=== PATIENT | female | born 1980 | race Hispanic/Latino ===

== ENCOUNTER 2017-06-12 21:10 | Emergency (ER) | payer OTHER ==
[~2017-06-12] VITALS: Ht 157.5 cm; Wt 106.0 kg
[~2017-06-12 21:10] MED LIST: PHENERGAN25 MG/TAB PO; PRENATAL1 TA1 PO
[2017-06-12 22:17] LABS: INFLUENZA A NONE DETECTED (NONE DETECT); INFLUENZA B NONE DETECTED (NONE DETECT)
[2017-06-12] MEDS ORDERED: FLOXIN OTIC0.3 % AD (22:21)
[2017-06-12] MEDS ORDERED: AMOXICILLIN875 MG PO (22:21)
[2017-06-12 22:40] VITALS: BP 132/90
== END 2017-06-12 22:40 | disposition home or self-care (01) | DRG 153 ==
LOC: ED 21:10
PROVIDERS: Emergency Medicine
DX: H66.91 Otitis media, unspecified, right ear (principal); H92.01 Otalgia, right ear; R05 Cough

== ENCOUNTER 2017-08-06 07:07 | Emergency (ER) | payer OTHER ==
[~2017-08-06] VITALS: Ht 157.5 cm; Wt 105.0 kg
[~2017-08-06 07:07] MED LIST changes: +AMOXICILLIN875 MG PO; +FLOXIN OTIC0.3 % AD
[2017-08-06 07:52] LABS: INFLUENZA A NONE DETECTED (NONE DETECT); INFLUENZA B NONE DETECTED (NONE DETECT)
[2017-08-06] MEDS ORDERED: AMOXICILLIN500 MG PO (08:05)
[2017-08-06 08:11] VITALS: BP 149/93
== END 2017-08-06 08:11 | disposition home or self-care (01) | DRG 153 ==
LOC: ED 07:07
PROVIDERS: Emergency Medicine
DX: J02.0 Streptococcal pharyngitis (principal); R05 Cough; R50.9 Fever, unspecified; R09.81 Nasal congestion

== ENCOUNTER 2017-11-03 19:07 | Emergency (ER) | payer OTHER ==
[~2017-11-03] VITALS: Ht 157.5 cm; Wt 103.0 kg
[~2017-11-03 19:07] MED LIST changes: +AMOXICILLIN500 MG PO
[2017-11-03 20:17] LABS: HEMATOCRIT 37.9 % (37.0-47.0); HEMOGLOBIN 12.1 g/dl (12.0-16.0); IMMATURE GRANULOCYTES 0.5 % (0.0-1.0); MEAN CELL VOLUME 78.1 fL CALC (80.0-100.0); MEAN CORPUSCULAR HGB 24.9 pG CALC (26.0-32.0); MEAN CORPUSCULAR HGB CONC 31.9 g/L CALC (32.0-36.0); NEUT# 5.01 thou/uL (2.00-7.15); RED BLOOD COUNT 4.85 mill/uL (4.20-5.60); RED CELL DISTRI WIDTH 13.7 % (11.5-15.5)
[2017-11-03 20:23] LABS: URINE BILIRUBIN - DIPSTICK NEGATIVE (NEGATIVE); URINE BLOOD DIPSTICK NEGATIVE (NEGATIVE); URINE COLOR YELLOW; URINE GLUCOSE - DIPSTICK NEGATIVE (NEGATIVE); URINE KETONE NEGATIVE (NEGATIVE); URINE LEUK ESTERASE NEGATIVE (NEGATIVE); URINE NITRITE - DIPSTICK NEGATIVE (Negative); URINE PROTEIN - DIPSTICK NEGATIVE (NEG-TRACE); URINE SPECIFIC GRAVITY 1.015; URINE UROBILINOGEN - DIPSTICK 0.2 E.U./dL (0.2)
[2017-11-03 20:24] LABS: URINE CLARITY CLEAR
[2017-11-03 20:38] LABS: ALBUMIN 4.2 g/dL (3.2-5.0); ALKALINE PHOSPHATASE 64 u/l (38-126); AMYLASE 40 u/l (30-110); ANION GAP 14 (6-22 (CALC)); BILIRUBIN, TOTAL 0.4 mg/dL (0.0-1.4); BUN 11 mg/dL (7-17); BUN/CREATININE RATIO 19 (12-20 (CALC)); CARBON DIOXIDE 23 mmol/l (22-30); CHLORIDE 104 mmol/l (95-108); CREATININE 0.6 mg/dL (0.5-1.0); GFR > 60 ML/MIN (>=60 (CALC)); GFR FOR AFR.AMER. > 60 ML/MIN (>=60 (CALC)); LIPASE 61 u/l (23-300); POTASSIUM 4.1 mmol/l (3.5-5.1); SGOT/AST 13 u/l (14-36); SGPT/ALT 24 u/l (9-52); SODIUM 137 mmol/l (137-146); TOTAL PROTEIN 7.8 g/dL (6.3-8.2)
[2017-11-03 20:58] VITALS: BP 129/83
[2017-11-03] MEDS ORDERED: REGLAN10 MG PO (21:10)
== END 2017-11-03 21:19 | disposition home or self-care (01) | DRG 392 ==
LOC: ED 19:07
DX: K21.9 Gastro-esophageal reflux disease without esophagitis (principal); K29.70 Gastritis, unspecified, without bleeding; Z98.84 Bariatric surgery status

== ENCOUNTER 2017-12-18 10:52 | Day surgery (SDC) | payer OTHER ==
[~2017-12-18] VITALS: Ht 157.5 cm; Wt 107.0 kg
[~2017-12-18 10:52] MED LIST changes: +CARAFATE1 GM PO; +PROTONIX20 M1 PO; +REGLAN10 MG PO
[2017-12-18] MEDS ORDERED: ACETAMINOPHEN (12:36)
[2017-12-18 14:25] VITALS: BP 138/85
== END 2017-12-18 14:39 | disposition home or self-care (01) | DRG 392 ==
LOC: ENDO 10:52 → ORM 13:00 → ENDO 14:39
PROVIDERS: ATTEND Internal Medicine Gastroenterology
PROC: 0DB48ZX Excision of Esophagogastric Junction, Via Natural or Artificial Opening Endoscopic, Diagnostic (ICD-10-PCS; principal; 2017-12-18)
PROC: 0DB78ZX Excision of Stomach, Pylorus, Via Natural or Artificial Opening Endoscopic, Diagnostic (ICD-10-PCS; 2017-12-18)
PROC: 0DB28ZX Excision of Middle Esophagus, Via Natural or Artificial Opening Endoscopic, Diagnostic (ICD-10-PCS; 2017-12-18)
DX: K21.9 Gastro-esophageal reflux disease without esophagitis (principal); K22.8 Other specified diseases of esophagus; K29.70 Gastritis, unspecified, without bleeding; Q40.8 Other specified congenital malformations of upper alimentary tract; E66.9 Obesity, unspecified; Z98.84 Bariatric surgery status

== ENCOUNTER 2018-12-30 14:55 | Emergency (ER) | payer OTHER ==
[~2018-12-30] VITALS: Ht 157.5 cm; Wt 120.0 kg
[~2018-12-30 14:55] MED LIST changes: +ACETAMINOPHEN
[2018-12-30] MEDS ORDERED: DICYCLOMINE10 MG PO (17:34)
[2018-12-30] MEDS ORDERED: TORADOL PO (17:34)
[2018-12-30 17:48] VITALS: BP 131/81
== END 2018-12-30 17:48 | disposition home or self-care (01) | DRG 103 ==
LOC: ED 14:55
DX: R51 Headache (principal); R20.2 Paresthesia of skin; V43.51XA Car driver injured in collision with sport utility vehicle in traffic accident, initial encounter

== ENCOUNTER 2019-06-19 | Emergency (ER) | payer OTHER ==
[~2019-06-19] MED LIST changes: +DICYCLOMINE10 MG PO; +TORADOL PO
== END 2019-06-19 22:30 | disposition home or self-care (01) | DRG 935 ==
PROC: 2W2KX4Z Dressing of Left Finger using Bandage (ICD-10-PCS; principal; 2019-06-19)
DX: T23.132A Burn of first degree of multiple left fingers (nail), not including thumb, initial encounter (principal); X10.2XXA Contact with fats and cooking oils, initial encounter; Y93.G3 Activity, cooking and baking; Y92.000 Kitchen of unspecified non-institutional (private) residence as the place of occurrence of the external cause

== ENCOUNTER 2020-06-03 20:24 | Emergency (ER) | payer OTHER ==
[~2020-06-03] VITALS: Ht 157.5 cm; Wt 107.0 kg
[2020-06-03 21:29] LABS: HEMOGLOBIN 12.7 g/dl (12.0-16.0); IMMATURE GRANULOCYTES 0.5 % (0.0-5.0); MEAN CELL VOLUME 78.1 fL CALC (80.0-100.0); MEAN CORPUSCULAR HGB 24.2 pG CALC (26.0-32.0); NEUT# 7.22 thou/uL (2.00-7.15); RED BLOOD COUNT 5.25 mill/uL (4.20-5.60); RED CELL DISTRI WIDTH 13.3 % (11.5-15.5)
[2020-06-03 21:43] LABS: ALBUMIN 4.6 g/dL (3.2-5.0); ALKALINE PHOSPHATASE 71 u/l (38-126); AMYLASE 70 u/l (30-110); ANION GAP 13 (6-22 (CALC)); BILIRUBIN, TOTAL 0.4 mg/dL (0.0-1.4); BUN 15 mg/dL (7-17); BUN/CREATININE RATIO 24 (12-20 (CALC)); CARBON DIOXIDE 26 mmol/l (22-30); CHLORIDE 104 mmol/l (95-108); CREATININE 0.6 mg/dL (0.5-1.0); GFR > 60 ML/MIN (>=60 (CALC)); GFR FOR AFR.AMER. > 60 ML/MIN (>=60 (CALC)); LIPASE 41 u/l (23-300); POTASSIUM 3.8 mmol/l (3.5-5.1); SODIUM 140 mmol/l (137-146); TOTAL PROTEIN 8.3 g/dL (6.3-8.2)
[2020-06-03 21:44] LABS: SGOT/AST 26 u/l (14-36)
[2020-06-03 21:54] LABS: MYOGLOBIN 54 ng/mL (0 - 62)
[2020-06-03 23:13] LABS: URINE BILIRUBIN - DIPSTICK NEGATIVE (NEGATIVE); URINE BLOOD DIPSTICK NEGATIVE (NEGATIVE); URINE COLOR YELLOW; URINE GLUCOSE - DIPSTICK NEGATIVE (NEGATIVE); URINE KETONE NEGATIVE (NEGATIVE); URINE LEUK ESTERASE NEGATIVE (NEGATIVE); URINE NITRITE - DIPSTICK NEGATIVE (Negative); URINE PROTEIN - DIPSTICK NEGATIVE (NEG-TRACE); URINE SPECIFIC GRAVITY 1.015; URINE UROBILINOGEN - DIPSTICK 0.2 E.U./dL (0.2)
[2020-06-04 00:18] VITALS: BP 158/81
== END 2020-06-04 00:20 | disposition left against medical advice (07) | DRG 312 ==
LOC: ED 20:24
PROVIDERS: Emergency Medicine
DX: R55 Syncope and collapse (principal); R10.13 Epigastric pain; R11.2 Nausea with vomiting, unspecified; R19.7 Diarrhea, unspecified; R16.1 Splenomegaly, not elsewhere classified; Z98.84 Bariatric surgery status; Z91.19 Patient's noncompliance with other medical treatment and regimen
CPT/HCPCS: Q9967

== ENCOUNTER 2021-01-22 17:23 | Emergency (ER) | payer OTHER ==
[~2021-01-22] VITALS: Ht 157.5 cm; Wt 105.0 kg
[2021-01-22] MEDS ORDERED: TESSALON PERLE100 MG PO (19:59)
[2021-01-22] MEDS ORDERED: ZPAK PO (19:59)
[2021-01-22 20:33] VITALS: BP 148/88
== END 2021-01-22 20:40 | disposition home or self-care (01) | DRG 153 ==
LOC: ED 17:23
DX: J32.9 Chronic sinusitis, unspecified (principal); J40 Bronchitis, not specified as acute or chronic; R07.81 Pleurodynia; Z20.822 Contact with and (suspected) exposure to COVID-19

== ENCOUNTER 2021-06-16 13:06 | Emergency (ER) | payer OTHER ==
[~2021-06-16] VITALS: Ht 157.5 cm; Wt 106.0 kg
[~2021-06-16 13:06] MED LIST changes: +TESSALON PERLE100 MG PO; +ZPAK PO
[2021-06-16 15:44] LABS: HEMATOCRIT 37.7 % (37.0-47.0); HEMOGLOBIN 11.6 g/dl (12.0-16.0); IMMATURE GRANULOCYTES 0.8 % (0.0-5.0); MEAN CELL VOLUME 78.4 fL CALC (80.0-100.0); MEAN CORPUSCULAR HGB 24.1 pG CALC (26.0-32.0); MEAN CORPUSCULAR HGB CONC 30.8 g/dL CAL (32.0-36.0); NEUT# 7.42 thou/uL (2.00-7.15); RED BLOOD COUNT 4.81 mill/uL (4.20-5.60); RED CELL DISTRI WIDTH 17.5 % (11.5-15.5)
[2021-06-16 15:58] LABS: ALKALINE PHOSPHATASE 47 u/l (38-126); ANION GAP 8 (6-22 (CALC)); BILIRUBIN, TOTAL 0.4 mg/dL (0.0-1.4); BUN 16 mg/dL (7-17); BUN/CREATININE RATIO 25 (12-20 (CALC)); CARBON DIOXIDE 29 mmol/l (22-30); CHLORIDE 103 mmol/l (95-108); CREATININE 0.6 mg/dL (0.5-1.0); GFR > 60 ML/MIN (>=60 (CALC)); GFR FOR AFR.AMER. > 60 ML/MIN (>=60 (CALC)); POTASSIUM 3.9 mmol/l (3.5-5.1); SGOT/AST 19 u/l (14-36); SODIUM 137 mmol/l (137-146)
[2021-06-16 15:59] LABS: ALBUMIN 3.3 g/dL (3.2-5.0); TOTAL PROTEIN 6.4 g/dL (6.3-8.2)
[2021-06-16] MEDS ORDERED: TORADOL PO (18:45)
[2021-06-16] MEDS ORDERED: FLEXERIL5 M1 PO (18:45)
[2021-06-16 19:13] VITALS: BP 125/64
== END 2021-06-16 19:13 | disposition home or self-care (01) | DRG 179 ==
LOC: ED 13:06
PROVIDERS: Emergency Medicine
DX: U07.1 COVID-19 (principal)
CPT/HCPCS: Q9967

== ENCOUNTER 2022-03-22 16:27 | Emergency (ER) | payer OTHER ==
[~2022-03-22] VITALS: Ht 157.5 cm; Wt 105.0 kg
[~2022-03-22 16:27] MED LIST changes: +FLEXERIL5 M1 PO
[2022-03-22 18:00] VITALS: BP 141/93
== END 2022-03-22 18:00 | disposition home or self-care (01) | DRG 563 ==
LOC: ED 16:27
DX: S63.632A Sprain of interphalangeal joint of right middle finger, initial encounter (principal); W54.8XXA Other contact with dog, initial encounter

== ENCOUNTER 2023-11-12 17:53 | Emergency (ER) | payer OTHER ==
[2023-11-12] VITALS (8 sets, daily range): BP systolic 103–165; BP diastolic 55–103
[~2023-11-12] VITALS: Ht 157.5 cm; Wt 99.7 kg
[2023-11-12] MEDS ORDERED: DiphenhydrAMINE HCL 50 MG/ML SDV IV ONE (18:05)
[2023-11-12] MEDS ORDERED: METOCLOPRAMIDE HCL 10 MG/2 ML SDV IV ONE (18:05)
[2023-11-12] MEDS ORDERED: KETOROLAC TROMETHAMINE 30 MG/ML SDV IV ONE (18:05)
[2023-11-12] MEDS ORDERED: ASPIRIN 81 MG/TAB PO ONE (18:10)
[2023-11-12 19:01] LABS: BASO% 0.2 % (0-3); EOS% 1.6 % (0-8); HEMATOCRIT 37.1 % (37.0-47.0); HEMOGLOBIN 11.7 g/dl (12.0-16.0); IMMATURE GRANULOCYTES 0.4 % (0.0-5.0); LYMPH% 29.6 % (15-41); MEAN CELL VOLUME 78.4 fL CALC (80.0-100.0); MEAN CORPUSCULAR HGB 24.7 pG CALC (26.0-32.0); MEAN CORPUSCULAR HGB CONC 31.5 g/dL CAL (32.0-36.0); MONO% 8.1 % (2-13); NEUT# 6.8 thou/uL (2.00-7.15); NEUT% 60.1 % (42-76); RED BLOOD COUNT 4.73 mill/uL (4.20-5.60); RED CELL DISTRI WIDTH 13.3 % (11.5-15.5)
[2023-11-12 19:16] LABS: ALKALINE PHOSPHATASE 64 u/l (38-126); ANION GAP 8 (6-22 (CALC)); BUN 12 mg/dL (7-17); BUN/CREATININE RATIO 18 (12-20 (CALC)); CARBON DIOXIDE 29 mmol/l (22-30); CHLORIDE 103 mmol/l (95-108); CREATININE 0.7 mg/dL (0.5-1.0); ESTIMATED GFR 111 ML/MIN (>=90 (CALC)); POTASSIUM 4.1 mmol/l (3.5-5.1); SGOT/AST 31 u/l (14-36); SODIUM 136 mmol/l (137-146)
[2023-11-12 19:31] LABS: ALBUMIN 4.5 g/dL (3.2-5.0); BILIRUBIN, TOTAL 0.2 mg/dL (0.02-1.3); TOTAL PROTEIN 8.2 g/dL (6.3-8.2)
== END 2023-11-12 21:30 | disposition home or self-care (01) | DRG 313 ==
LOC: ED 17:53
PROVIDERS: Family Medicine
DX: R07.9 Chest pain, unspecified (principal); R51.9 Headache, unspecified